=== PATIENT | female | born 1985 ===

== ENCOUNTER 2018-06-25 08:52 | Emergency (ER) | payer SELFPAY ==
[2018-06-25 08:52] VITALS: BMI 35.1
[2018-06-25 09:03] VITALS: BP 127/78; PULSE 86; RESP 18; TEMP 98.2; O2SAT 99
--- NOTE | 2018-06-25 09:33 | C.PDOC ---
History Of Present Illness 32 Y/O FEMALE PRESENTS TO ED WITH C/O RIGHT EAR PAIN X 2 DAYS. PATIENT DENIES HEARING LOSS OR DISCHARGE. PATIENT REPORTS NO IMPROVEMENT WITH DEBROX. NO FEVER OR ANY OTHER COMPLAINTS AT THIS TIME. EXAM NONTOXIC HEENT L EAR WNL. R EAR +OTITIS EXTERNA. R TM WNL.NOSE CLEAR Time Seen by Provider: 06/25/18 09:14 Chief Complaint (Nursing): ENT Problem History Per: Patient History/Exam Limitations: None Onset/Duration Of Symptoms: Days Current Symptoms Are (Timing): Still Present Quality (Ear): Pain W/Touch. denies: Discharge Past Medical History Reviewed: Historical Data, Nursing Documentation, Vital Signs Vital Signs: Last Vital Signs Temp 98.2 F 06/25/18 09:01 Pulse 86 06/25/18 09:01 Resp 18 06/25/18 09:01 BP 127/78 06/25/18 09:01 Pulse Ox 99 06/25/18 09:01 - Medical History PMH: No Chronic Diseases Surgical History: Appendectomy - [id number] Procedures DELIVERY OF PRODUCTS OF CONCEPTION, EXTERNAL APPROACH (03/10/16) Family History: States: No Known Family Hx - Social History Hx Alcohol Use: No Hx Substance Use: No Review Of Systems Constitutional: Negative for: Fever, Chills ENT: Positive for: Ear Pain. Negative for: Throat Pain Respiratory: Negative for: Cough Gastrointestinal: Negative for: Nausea, Vomiting Neurological: Negative for: Headache Physical Exam - Physical Exam Appears: Non-toxic, No Acute Distress Skin: Warm, No Rash Head: Atraumatic, Normacephalic Eye(s): bilateral: Normal Inspection Ear(s): Left: Normal, Right: Other (+Otitis externa, TM within normal limits) Nose: Normal, No Discharge Oral Mucosa: Moist Throat: Normal, No Erythema, No Exudate Neck: Supple Neurological/Psych: Oriented x3, Normal Speech, Normal Cognition ED Course And Treatment O2 Sat by Pulse Oximetry: 99 (RA) Pulse Ox Interpretation: Normal Disposition Counseled Patient/Family Regarding: Diagnosis, Need For Followup, Rx Given - Disposition Referrals: YOUR,PMD [Other] Disposition: HOME/ ROUTINE Disposition Time: 09:31 Condition: IMPROVED Prescriptions: Ciprofloxacin/Dexamethasone [Ciprodex Otic] 2 drop AD BID #1 bottle Instructions: Outer Ear Infection (DC) Forms: [facility] (Irish), Work Excuse - Clinical Impression Clinical Impression: Otitis externa - Scribe Statement The provider has reviewed the documentation as recorded by the Olgaibsarbjit Healy All medical record entries made by the Olgaibsarbjit were at my direction and personally dictated by me. I have reviewed the chart and agree that the record accurately reflects my personal performance of the history, physical exam, medical decision making, and the department course for this patient. I have also personally directed, reviewed, and agree with the discharge instructions and disposition.
== END 2018-06-25 09:58 | disposition home or self-care (01) ==
LOC: C.ER 08:52
DX: H60.91 Unspecified otitis externa, right ear (principal)